=== PATIENT | male | born 1935 | race Caucasian/White ===

== ENCOUNTER 2024-05-29 13:41 | Emergency (ER) | payer OTHER, MEDICAID ==
[~2024-05-29] VITALS: Ht 175.3 cm; Wt 80.0 kg
[2024-05-29 13:43] VITALS: O2SAT 99
[2024-05-29] MEDS: PIPERACILLIN/TAZO 3.375G/50ML 50 ML IV ONE (14:15)
[2024-05-29] MEDS: SODIUM CHLORIDE 0.9% (SEPSIS BOLUS) IV ONE (14:15)
[2024-05-29 14:16] VITALS: PULSE 75; RESP 15; TEMP 37.1; O2SAT 100
[2024-05-29] MEDS: VANCOMYCIN 1G PREMIX 200 ML IV ONE (14:16)
[2024-05-29 15:00] LABS: BASOPHILS % 0.3 % (0.0-2.0); EOSINOPHILS % 1.7 % (0.0-5.0); HEMATOCRIT. 43.3 % (42.0-52.0); HEMOGLOBIN. 14.4 g/dL (14.0-18.0); LYMPHOCYTES % 23.6 % (20.0-50.0); MEAN CORPUSCULAR HEMOGLOBIN 31.3 pg (28.0-32.0); MEAN CORPUSCULAR HGB CONC 33.2 g/dL (31.0-37.0); MEAN CORPUSCULAR VOLUME 94.2 fL (80.0-94.0); MEAN PLATELET VOLUME 8.6 fl (7.4-10.4); MONOCYTES % 4.9 % (2.0-8.0); NEUTROPHILS % 69.5 % (40.0-76.0); PLATELET 476 x1000/uL (130-400); WHITE BLOOD COUNT 9.5 x1000/uL (4.5-11.0)
[2024-05-29 15:03] LABS: CHLORIDE 106 mEq/L (98-107); POTASSIUM 3.7 mEq/L (3.5-5.1); SODIUM 141 mEq/L (136-145)
[2024-05-29 15:04] LABS: CARBON DIOXIDE 22 mEq/L (21-32)
[2024-05-29 15:05] LABS: CALCIUM 9.3 mg/dL (8.7-10.4)
[2024-05-29 15:06] LABS: LACTIC ACID 2.3 mmol/L (0.4-2.0)
[2024-05-29 15:09] LABS: CREATININE 0.8 mg/dL (0.6-1.3); GLUCOSE 125 mg/dL (70-105); UREA NITROGEN BLOOD 21 mg/dL (9-23)
[2024-05-29 15:12] LABS: PARTIAL THROMBOPLASTIN TIME 29.9 sec (23.4-31.0); PROTHROMBIN TIME 11.1 sec (9.6-11.0)
[2024-05-29 15:31] LABS: TROPONIN I HIGH SENSITIVITY < 4 ng/L (3.0-53)
[2024-05-29] MEDS: LORAZEPAM 2MG/ML INJ IV ONE (15:39)
[2024-05-29 16:21] LABS: ALANINE AMINOTRANSFERASE 53 IU/L (10-49); ALBUMIN 3.6 g/dL (3.2-4.8); ASPARTATE AMINOTRANSFERASE 39 IU/L (<34); BILIRUBIN DIRECT 0.2 mg/dL (<=3.0); BILIRUBIN TOTAL 0.6 mg/dL (0.1-1.0); PROTEIN TOTAL 7.1 g/dL (6.0-8.3)
[2024-05-29 18:08] VITALS: BP 148/66
[2024-05-29 22:16] LABS: HIV 1/2 AB P24AG Negative (Negative)
[2024-05-29 22:49] LABS: HEPATITIS B SURFACE AB 114.5 mIU/mL; HEPATITIS B SURFACE ANTIGEN NEGATIVE; HEPATITIS C VIR.AB 0.38 INDEXVAL (0.00-0.80)
[2024-05-29] MEDS ORDERED: IOHEXOL-300 100 ML BOTTLE ONE (23:13)
== END 2024-05-29 18:30 | disposition left against medical advice (07) ==
LOC: ER 14:01 → EDBEDREQ 14:30 → CANBEDREQ 17:38 → ER 18:30
DX: S06.5XAA Traumatic subdural hemorrhage with loss of consciousness status unknown, initial encounter (principal); R41.82 Altered mental status, unspecified; R22.1 Localized swelling, mass and lump, neck; R65.21 Severe sepsis with septic shock; A41.9 Sepsis, unspecified organism; E11.9 Type 2 diabetes mellitus without complications; F03.90 Unspecified dementia, unspecified severity, without behavioral disturbance, psychotic disturbance, mood disturbance, and anxiety; I10 Essential (primary) hypertension; X58.XXXA Exposure to other specified factors, initial encounter; Y93.89 Activity, other specified; Y92.89 Other specified places as the place of occurrence of the external cause; Y99.8 Other external cause status
CPT/HCPCS: 99291; 70450; 96365; 71045; 96366; 96375; 80076; 80048; 83880; 83605; 85025; 85610; 85730; 87040; 84484; 84145; 70487; 70491; 93005; 96368; 36415; Q9967; J2060; J2543; J3370; J7030